=== PATIENT | male | born 1945 | race Caucasian/White ===

== ENCOUNTER 2021-10-04 13:38 | Emergency (ER) | payer MEDICARE, SELFPAY ==
--- NOTE | 2021-10-04 13:50 | ED.GENADULT ---
HPI - General Adult General Chief complaint: Unspecified Stated complaint: not feeling well Time Seen by Provider: 10/04/21 14:06 Source: patient Mode of arrival: ambulatory Limitations: no limitations History of Present Illness HPI narrative: 36-year-old male presents with concern for general malaise. Reports he probably had that virus with symptoms starting 12 days ago. Reports feeling slightly tired, achy. Reports body aches were treated with Tylenol. He denies any current symptoms. Denies nasal congestion, rhinorrhea, sore throat, headache, cough, fever, chills, sweats, nausea, vomiting, diarrhea. Reports he needs Cipro, it will make me feel better, it always does . complaint: Malaise Related Data Home Medications Medication Instructions Recorded Confirmed atorvastatin 20 mg PO DAILY 08/17/19 10/04/21 lisinopril 40 mg PO DAILY 08/17/19 10/04/21 Allergies Allergy/AdvReac Type Severity Reaction Status Date / Time No Known Allergies Allergy Mild Verified 10/04/21 13:42 Review of Systems Review of Systems: CONSTITUTIONAL: Denies malaise, chills, sweats, or fever. EYES: Denies visual changes, redness, or discharge. ENT: Denies rhinorrhea, congestion, sinus pain, otalgia or sore throat. CARDIOVASCULAR: Denies chest pain, palpitations, or edema. RESPIRATORY: Denies cough or dyspnea. GASTROINTESTINAL: Denies abdominal pain, nausea, vomiting, diarrhea, bloody, or mucous stools. GENITOURINARY: Denies dysuria or hematuria. SKIN: Denies rash or itching. MUSCULOSKELETAL: Denies back pain, joint pain, or myalgia. NEUROLOGIC: Denies numbness, weakness, or headache. PSYCHIATRIC: Denies anxiety or depression. All systems reviewed & are unremarkable except as noted in HPI and below PMFSH Past Medical History Medical History (Updated 10/04/21 @ 14:17 by Valentine Tobar NP) Hyperlipidemia Hypertension Kidney stones Seasonal allergies Surgical History Surgical History (Updated 08/21/19 @ 10:54 by Adriane Duarte NP) Hx of tonsillectomy Family History Family History Father Family history of liver disease Patient's father is Mother Patient's mother is Social History Social History (Updated 08/21/19 @ 10:55 by Adriane Duarte NP) Smoking status: Never smoker Alcohol intake: never Gender identity (if verbalized by the patient): Male Comments At time of signature, agree with nursing past medical, surgical, social and family history. There is no relevant family history pertinent to the presenting complaint Exam Narrative: GENERAL: Well-appearing, well-nourished, and in no acute distress. EYES:sclera clear CHEST: No respiratory distress. Speaks in full sentences. HEART: Regular rate and rhythm. No murmur heard. Normal peripheral pulses. SKIN: No visible rash. NEURO: Alert and oriented x3. PSYCH: Normal mood and affect Exam only done by visual inspection, patient did not allow any further exam to be completed Course Course Emergency Course: Discussed at length with patient his symptoms and appropriate treatment which may likely not include an antibiotic, particularly a specific antibiotic that he is asking for. Discussed with patient that it was my goal to help him feel better, and if he would allow an exam I could determine what the best plan of treatment would be. Patient said I am wasting my time if I can't get Cipro. Patient left without full examination or treatment. Portions of this record may have been created with voice recognition software Level of Care: Express Care Visit Vital Signs Vital signs: Reviewed. Medical Decision Making MDM Narrative Medical decision making narrative: The patient eloped without treatment. The patient reason(s) for leaving include, but are not limited to, the following: He is wasting his time if he cannot get ciprofloxacin. I believe this patient is of
[2021-10-04 13:54] VITALS: BP 145/69; PULSE 63; RESP 16; TEMP 36.3; O2SAT 100
== END 2021-10-04 14:14 | disposition left against medical advice (07) ==
PROVIDERS: Emergency Provider Nurse Practitioner
DX: R53.81 Other malaise (principal); I10 Essential (primary) hypertension; E78.5 Hyperlipidemia, unspecified
CPT/HCPCS: 99211; G0463